=== PATIENT | male | born 1930 | race Caucasian/White ===

== ENCOUNTER → 2016-06-28 | Outpatient (REF) ==
[~2016-06-28] MED LIST: ARICEPT10 MG PO; ASPIRIN 32325 MG/TAB PO; ASPIRIN E.C. 8181 MG PO; ATIVAN0.5 MG PO; DOXAZOCIN PO; ELITE MAGNESIUM1 TAB PO; LOW DOSE ASPIRI81 MG PO; MULTIPLE VITAMI1 CAP PO; PAROXETINE10 MG PO; POTASSIUM20 MEQ PO; PRAVACHOL 20MG20 MG PO; PRAVACHOL10 MG PO; RISPERDAL 0.20.25 MG PO; VITAMIN B COMPL1 T16 PO; VITAMIN B-1000 MCG/T PO; VITAMIN C BUFF500 MG PO; VITAMIN C PUR1000 MG PO; VITAMIN D32000 I1 PO; VITAMIN D32000 IU PO; XANAX .25M0.25 MG/TA PO
== END ==
LOC: ZLAB.WCH 16:21
DX: Z01.89 Encounter for other specified special examinations (principal)
CPT/HCPCS: G0103

== ENCOUNTER → 2017-05-27 | Outpatient (REF) ==
[2017-05-27 11:46] LABS: PSA-TOTAL 4.71 ng/mL (0-4); THYROID STIMULATING HORMONE 2.07 uIU/mL (0.465-4.680)
== END ==
LOC: ZLAB.WCH 11:02
PROVIDERS: Internal Medicine
DX: Z01.89 Encounter for other specified special examinations (principal)
CPT/HCPCS: G0103

== ENCOUNTER → 2018-05-29 | Outpatient (REF) ==
[2018-05-29 20:25] LABS: PSA-TOTAL 5.06 ng/mL (0-4)
== END ==
LOC: ZLAB.WCH 18:28
PROVIDERS: Internal Medicine
DX: Z01.89 Encounter for other specified special examinations (principal)
CPT/HCPCS: G0103

== ENCOUNTER → 2018-07-09 | Outpatient (REF) | LOC: ZLAB.WCH 17:57 | DX: Z01.89 Encounter for other specified special examinations (principal) ==

== ENCOUNTER 2020-01-07 08:38 | Inpatient (IN) | payer MEDICARE, OTHER, MEDICAID ==
[2020-01-07] VITALS (10 sets, daily range): BP systolic 106–127; BP diastolic 49–65; PULSE 63–151; TEMP 98–100.7
[~2020-01-07] VITALS: Wt 76.3 kg
[2020-01-07] MEDS ORDERED: LEXAPRO 10MG10 MG PO (11:28)
--- NOTE | 2020-01-07 14:15 | NUR ---
PT ADMITTED TO ROOM 345 PER EMS FROM [facility]. CLEARED BY HOSPITALIST AND NOTIFIED DR. MIRANDA. CONSENT OBTAINED FROM BENJI PARRA' AND DPOA. PT TO SURGERY AT THIS TIME PER BED WITH CHANTEL SPORTS DIRECTOR.
--- NOTE | 2020-01-07 17:32 | NUR ---
PT TO ROOM 345 PER BED WITH REPORT FROM WILLIAM JUAREZ @[id number]. PT IS DROWSEY BUT AROUSES TO VERBAL, BASELINE DEMENTIA NOT ABLE TO ANSWER QUESTIONS. VSS, DRESSING TO RIGHT HIP CDI WITH BULKY DRESSING IN PLACE.
--- NOTE | 2020-01-07 18:22 | NUR ---
PT HAS REDDENED AREA AROUND MEATUS THAT IS RAW REDDISH FROM [place] THAT HAS BEEN TREATED.
--- NOTE | 2020-01-08 03:03 | NUR ---
Patient has rested well throughout the night. Post-op vitals were within normal limits. Patient doesn't talk much and will say 1-2 word answers to questions. Patient was drowsy, but able to be aroused to verbal stimuli. Medications crushed and put in chocolate pudding as this nurse was unsure how well he swallowed. Patient tolerated this well. PRN Tramadol given for pain d/t grimacing when repositioning. Bulky dressing noted to right hip. Danielson continues to drain clear, yellow urine. Escoriation noted to tip of penis d/t skin cancer removal prior to this hospital stay. Per report, patient has baseline dementia. Compliant with cares. Will continue to monitor patient.
[2020-01-08 03:39] VITALS: BP 116/55; PULSE 83; TEMP 100.4
[2020-01-08 06:40] LABS: CALCIUM 8.2 mg/dL (8.4-10.2); CREATININE, serum 1.32 (0.66-1.25); POTASSIUM 4.4 mmol/L (3.4-5.0)
[2020-01-08 06:42] LABS: HEMATOCRIT 30.7 % (42.0-52.0)
--- NOTE | 2020-01-08 06:45 | NUR ---
bedside shift repeort received from LARRY Sanabria, is awake but does not answer questions
[2020-01-08 07:35] VITALS: BP 115/50; PULSE 70; TEMP 99.1
--- NOTE | 2020-01-08 07:40 | NUR ---
appears to be dozing, awakened for assessment, henley appears to have been leaking and blankets and pillow between his legs are wet, incontinent care and am hygiene completed, f ull assessment completed, VOCATIONAL HORTICULTURE INSTRUCTOR at bedside and will assist him with having breakfast, c/o pain when rolled to side, repositioned to left side
--- NOTE | 2020-01-08 10:49 | NUR ---
remains sitting up in chair, takes sips of water when offered
--- NOTE | 2020-01-08 10:55 | NUR ---
The patient has dementia. LESIA contacted the patient's , Ruth (ph#[phone]), to discuss discharge plan. The patient resides at [facility] for long-term care. His PCP is Dr. Ervin Avilez and his advanced directives are in EMR. His DPOA-HC is his . The patient had a hip fracture. Ruth reports that she would prefer for the patient to go to [facility] for rehab upon discharge, due to her living in [place] and them allowing visitors at this time. Ruth reports that her and family would be able to provide transportation. Ruth states that if [facility] cannot accept the patient, then she would be agreeable with the patient returning back to [facility] for rehab. LESIA contacted and faxed a referral to Edwige at [facility]. Edwige confirms that they are allowing visitors at this time. LESIA contacted and updated Cali at [facility]. Cali reports that they would be able to accept the patient back and that they would not require another COVID test. LESIA faxed updates to [facility]. LESIA awaiting [facility] screen and will continue to follow.
--- NOTE | 2020-01-08 11:35 | NUR ---
First visit from the can cutter. No needs right now.
--- NOTE | 2020-01-08 11:45 | NUR ---
Dr Shore in to see patient, patient is sitting up in chair and assisting him with eating lunch,does well with marcel snow taking liquids with assistance
[2020-01-08 11:52] LABS: MEAN CELL VOLUME 94 fl (80.0-100.0); MEAN CORPUSCULAR HEMOGLOBIN 30 pg (27.0-31.0); MEAN CORPUSCULAR HGB CONC 32 g/dl (33.0-37.0); MEAN PLATELET VOLUME 11.2 fl (7.4-10.4); PLATELET COUNT 144 K/mm3 (130-400); RED BLOOD COUNT 3.32 M/mm3 (4.20-5.60); REDCELL DISTRIBUTION WIDTH-CV 13.1 % (11.5-14.5)
[2020-01-08 11:57] VITALS: BP 122/47; PULSE 104; TEMP 98.1
[2020-01-08 12:36] LABS: BAND 11 % (0-10); BASOPHIL 1 % (0-2); EOSINOPHIL 2 % (0-4); LYMPHOCYTE 10 % (20.0-51.0); NEUTROPHILS 66 % (42.0-75.2)
[2020-01-08 12:37] LABS: PLATELET ESTIMATE NORMAL (NORMAL)
--- NOTE | 2020-01-08 13:16 | NUR ---
assisted back to bed by physical therapy, henley catheter discontinued, occlusive dressing to right hip removed, incision with andreea and is CD&I, covered with aquacel dressing, tolerated well but does c/o pain when being moved, then rests quietly with eyes closed
--- NOTE | 2020-01-08 14:24 | NUR ---
in bed and appears to be sleeping, resp quiet and easy
--- NOTE | 2020-01-08 15:29 | NUR ---
LESIA received a phone call from the patient's granddaughter, Serena (ph#[phone]). Serena reports that the patient's and family actually preferred [facility], not [facility]. They are aware that he cannot have visitors at [facility], but still prefer it and that they have already been in contact with Joseline at [facility]. Serena states that the patient's is also starting to have some confusion. LESIA contacted and faxed a referral to Joseline at [facility]. Joseline reports that they would be glad to have the patient and would be able to accept him on Monday. Joseline reports that they would require a new COVID test. LESIA notified the patient's PA. LESIA attempted to contact and update Edwige at [facility]. LESIA left her a voicemail. SW to contact and update Cali at [facility] and will continue to follow.
[2020-01-08 17:14] VITALS: BP 113/55; PULSE 72; TEMP 98.1
--- NOTE | 2020-01-08 18:01 | NUR ---
assisted him with having some supper, not as ready to eat supper as he was lunch
--- NOTE | 2020-01-08 18:51 | NUR ---
bedside shift report given to LARRY Gilbert
--- NOTE | 2020-01-08 18:55 | NUR ---
Received report from Gabbie Doyle. Pt is currently sitting up in bed and his his call light wtihin reach and his bed is in lowest position.
[2020-01-08 20:00] VITALS: BP 112/48; PULSE 110; TEMP 100.4
[2020-01-09] VITALS (11 sets, daily range): BP systolic 87–149; BP diastolic 37–96; PULSE 73–167; TEMP 99–101.7
--- NOTE | 2020-01-09 01:00 | NUR ---
Pt is currently lying in bed sleeping. The aide reported to me that the pt has a temp of 100.2. I notified my charge nurse at this time because I was in with another pt and it would be a while before I was able to assess the pt. LARRY Patiño. gave him a [place] at that time.
--- NOTE | 2020-01-09 06:13 | NUR ---
With morning vitals the pt temperature did come down to 99.5. In report I was informed that the same thing happened with the pt the night before. Pt has his call light within reach. Pt did not take his night medications because after given pt a spoon of applesauce pt would not swallow. I did not give the pt the medication because of the risk of him aspirating on the medication. I also went back again and tried and thought it was best that the medication was not given.
[2020-01-09 07:01] LABS: MEAN CELL VOLUME 94 fl (80.0-100.0); MEAN CORPUSCULAR HGB CONC 33 g/dl (33.0-37.0); MEAN PLATELET VOLUME 10.7 fl (7.4-10.4); PLATELET COUNT 130 K/mm3 (130-400); REDCELL DISTRIBUTION WIDTH-CV 13.2 % (11.5-14.5)
[2020-01-09 07:05] LABS: HEMATOCRIT 24.3 % (42.0-52.0); HEMOGLOBIN 7.9 g/dl (13.5-18.0); MEAN CORPUSCULAR HEMOGLOBIN 30 pg (27.0-31.0)
[2020-01-09 07:11] LABS: CALCIUM 7.9 mg/dL (8.4-10.2); CREATININE, serum 1.55 (0.66-1.25); POTASSIUM 4.3 mmol/L (3.4-5.0)
--- NOTE | 2020-01-09 08:00 | NUR ---
Patient in bed. Arouses to voice and touch. SCDS to BLE. Aquacel to right hip is CDI. Will continue to monitor.
[2020-01-09 08:16] LABS: BAND 12 % (0-10); LYMPHOCYTE 8 % (20.0-51.0); NEUTROPHILS 72 % (42.0-75.2); PLATELET ESTIMATE NORMAL (NORMAL)
--- NOTE | 2020-01-09 10:41 | NUR ---
Tuyet CARRILLO in to see patient.
--- NOTE | 2020-01-09 11:10 | NUR ---
Patient up to recliner with physical therapy
--- NOTE | 2020-01-09 12:30 | NUR ---
Assisted patient with lunch. Ate approximately 50%
--- NOTE | 2020-01-09 15:38 | NUR ---
LESIA staffed with the patient's PA. The patient will not be able to d/c tomorrow. LESIA notified and emailed updates to Joseline at [facility]. LESIA contacted and updated the patient's and granddaughter, Serena. Serena reports that the plan is to transition the patient into long-term care at [facility]. She states that their family was not happy with the patient's care at [facility]. The patient's reports that the patient does have Medicaid. LESIA notified Financial Counselor, Darcy. Darcy confirms that he does have Medicaid and will add it to his account. LESIA to email an updated facesheet to Joseline at [facility]. LESIA faxed updates to [facility]. LESIA to continue to follow.
--- NOTE | 2020-01-09 16:10 | NUR ---
Notified Tuyet CARRILLO of increased temp.
--- NOTE | 2020-01-09 17:51 | NUR ---
Notified Dr. Shore; patients temp remains elevated.
--- NOTE | 2020-01-09 18:13 | NUR ---
Patient repositioned throughout the day. Assisted patient to eat meals. Napping on and off through the day. Temp remains elevated this afternoon. Will continue to monitor. WIll report off to night manager.
[2020-01-09 20:07] LABS: MUCOUS Present /lpf; PH 5 (5-8); SQUAMOUS EPITHELIAL 0-2 /hpf; URINE APPEARANCE Hazy; URINE BACTERIA Rare /hpf; URINE BILIRUBIN Negative (NEGATIVE); URINE BLOOD Negative (NEGATIVE); URINE COLOR Yellow; URINE GLUCOSE Negative (NEGATIVE); URINE KETONE Negative (NEGATIVE); URINE LEUKOCYTE ESTERASE Negative (NEGATIVE); URINE NITRATE Negative (NEGATIVE); URINE PROTEIN(semi-quant) 1+ (NEGATIVE); URINE UROBILINOGEN Negative (NEGATIVE)
[2020-01-10 01:14] LABS: COLLECTION METHOD CATHETER
--- NOTE | 2020-01-10 04:21 | NUR ---
During vitals rounds, OCCUPATIONAL HEALTH COORDINATOR notified this nurse of low blood pressure and high pulse. Manual blood pressure was taken and noted to be within normal limits. Telemetry ordered by Tammi Woods, along with an EKG. Straight cath completed and urine sample sent to lab. Patient tolerated this well. 100ml of urine out. Aquacel to right thigh removed per Tammi Woods, MARIUSZ. Edema noted to right thigh, lower back, and abdomen/groin. Redness and warmth present as well. Tammi aware. New dressing applied to site. Moderate amount of serosangiuous drainage noted to old dressing. Mehrdad intact. Patient noted to grimace with repositioning. PRN [place] given with evening medications. Meds crushed with pudding. Tolerated this well. Denies any further needs. Will continue to monitor.
[2020-01-10 05:24] VITALS: BP 116/49; PULSE 80; TEMP 99.5
[2020-01-10 07:11] LABS: BASO % 0.1 % (0.0-2.0); EOS # 0.3 (0.0-0.7); EOS % 3.2 % (0-4.0); GRAN # 6.6 (1.4-6.5); GRAN % 74.3 % (42.2-75.2); HEMATOCRIT 22.4 % (42.0-52.0); HEMOGLOBIN 7.1 g/dl (13.5-18.0); LYMPH # 0.8 (1.2-3.4); LYMPH % 9.3 % (20.0-51.0); MEAN CELL VOLUME 95 fl (80.0-100.0); MEAN CORPUSCULAR HEMOGLOBIN 30 pg (27.0-31.0); MEAN CORPUSCULAR HGB CONC 32 g/dl (33.0-37.0); MONO # 1.1 (0.1-0.6); MONO % 12.5 % (1.7-9.3); PLATELET COUNT 131 K/mm3 (130-400); RED BLOOD COUNT 2.37 M/mm3 (4.20-5.60); REDCELL DISTRIBUTION WIDTH-CV 13.3 % (11.5-14.5)
[2020-01-10 07:15] LABS: CALCIUM 7.8 mg/dL (8.4-10.2); CREATININE, serum 1.28 (0.66-1.25); POTASSIUM 4.1 mmol/L (3.4-5.0)
[2020-01-10 07:38] VITALS: BP 125/55; PULSE 74; TEMP 99.5
[2020-01-10 12:04] VITALS: BP 108/80; PULSE 63; TEMP 97.5
--- NOTE | 2020-01-10 13:58 | NUR ---
Quill Reamer emailed updates to Joseline at [facility]. Joseline inquired about discharge date and advised weekend admits are difficult for them as they do not have an admitting physician. LESIA collaborated with GERARDO Benz who advised discharge date would likely be Monday. LESIA provided this update to Joseline at . LESIA contacted patient's granddaughter, Serena to provide update. LESIA will continue to follow.
[2020-01-10 16:08] VITALS: BP 126/61; PULSE 70; TEMP 99.2
--- NOTE | 2020-01-10 18:30 | NUR ---
Patient has been very sleepy this morning. He did not eat much today. Was able to get him to drink more liquids today. He was having a hard time this am with eating and food intake. He was falling aleep during breakfast. Dressing to right hip is C/D/I. There continues to be reddsess to the area, but no drainage today. Patient sat up in the chair for a few hours with lunch. No other changes at this time. Dr Ireland seen patient afer lunch and stated he was not worried about the reddness at this time. Call light within reach. Bedalarm on.
[2020-01-10 20:14] VITALS: BP 127/53; PULSE 86; TEMP 98.4
--- NOTE | 2020-01-10 21:00 | NUR ---
Pt. laying in bed at this time. Pt. is confused. Pt. does respond to "yes/no" questions and will follow directions. INT to lt. wrist patent. Pt. grimices on occasion. Will give pain meds with evening meds. Pt. denies further needs, call light within reach.
[2020-01-11] VITALS (12 sets, daily range): BP systolic 101–133; BP diastolic 41–66; PULSE 60–72; TEMP 98.1–98.6
[2020-01-11 07:21] LABS: BASO % 0.3 % (0.0-2.0); EOS # 0.3 (0.0-0.7); EOS % 4.5 % (0-4.0); GRAN # 5.3 (1.4-6.5); GRAN % 70.2 % (42.2-75.2); LYMPH # 0.9 (1.2-3.4); LYMPH % 11.4 % (20.0-51.0); MEAN CELL VOLUME 95 fl (80.0-100.0); MEAN CORPUSCULAR HGB CONC 31 g/dl (33.0-37.0); MEAN PLATELET VOLUME 10.7 fl (7.4-10.4); MONO % 13.3 % (1.7-9.3); PLATELET COUNT 156 K/mm3 (130-400); RED BLOOD COUNT 2.36 M/mm3 (4.20-5.60); REDCELL DISTRIBUTION WIDTH-CV 13.4 % (11.5-14.5)
[2020-01-11 07:43] LABS: HEMATOCRIT 22.3 % (42.0-52.0); MEAN CORPUSCULAR HEMOGLOBIN 30 pg (27.0-31.0)
[2020-01-11 07:45] LABS: CREATININE, serum 1.18 (0.66-1.25); MAGNESIUM 2.3 mg/dL (1.6-2.3); POTASSIUM 3.9 mmol/L (3.4-5.0)
--- NOTE | 2020-01-11 09:33 | NUR ---
SW update: Patient can tranfer Monday. SW confirm with [facility] about admission.
--- NOTE | 2020-01-11 18:00 | NUR ---
Right hip aquacell saturated with serosanguinous drainage. Incision line CDI. New aquacell dressing applied. Moderated edema right hip. Denied pain. One unit of blood given. VSS. Assisted with meals.
[2020-01-12 00:16] VITALS: BP 114/58; PULSE 70; TEMP 97.4
[2020-01-12 03:29] VITALS: BP 126/68; PULSE 66; TEMP 98.4
[2020-01-12 07:10] VITALS: BP 119/71; PULSE 66; TEMP 97.7
[2020-01-12 07:52] LABS: BASO % 0.4 % (0.0-2.0); EOS # 0.4 (0.0-0.7); EOS % 5.4 % (0-4.0); GRAN # 4.4 (1.4-6.5); GRAN % 66.1 % (42.2-75.2); LYMPH # 0.8 (1.2-3.4); LYMPH % 11.7 % (20.0-51.0); MEAN CELL VOLUME 94 fl (80.0-100.0); MEAN CORPUSCULAR HGB CONC 32 g/dl (33.0-37.0); MEAN PLATELET VOLUME 10.9 fl (7.4-10.4); MONO # 1.1 (0.1-0.6); PLATELET COUNT 177 K/mm3 (130-400); RED BLOOD COUNT 2.85 M/mm3 (4.20-5.60); REDCELL DISTRIBUTION WIDTH-CV 13.3 % (11.5-14.5)
--- NOTE | 2020-01-12 08:00 | NUR ---
Drowsy. Denies pain. Right hip aquacell dressing with moderate amount drainage. Ice pack to hip. States wants to eat later.
[2020-01-12 08:02] LABS: CALCIUM 8.4 mg/dL (8.4-10.2); CREATININE, serum 1.09 (0.66-1.25)
[2020-01-12 08:04] LABS: HEMATOCRIT 26.7 % (42.0-52.0); HEMOGLOBIN 8.5 g/dl (13.5-18.0); MEAN CORPUSCULAR HEMOGLOBIN 30 pg (27.0-31.0)
--- NOTE | 2020-01-12 11:30 | NUR ---
Stood at side of bed with physical therapy and staff assist. Denied pain.
[2020-01-12 11:41] VITALS: BP 128/58; PULSE 65; TEMP 97.8
--- NOTE | 2020-01-12 14:00 | NUR ---
Complained of pain in left foot when repositioned. ALOK hose removed. Pressure ulcer noted on left heel. Skin intact. Heel protectors applied to heels.
[2020-01-12 15:28] VITALS: BP 119/57; PULSE 69; TEMP 97.8
--- NOTE | 2020-01-12 17:35 | NUR ---
Tylenol given for c/o hip pain with repositioning.
[2020-01-12 19:53] VITALS: BP 99/45; PULSE 70; TEMP 99.3
[2020-01-13 00:58] VITALS: BP 113/45; PULSE 59; TEMP 98.4
[2020-01-13 03:37] VITALS: BP 104/59; PULSE 65; TEMP 98.4
[2020-01-13 07:01] LABS: CALCIUM 8.1 mg/dL (8.4-10.2); CREATININE, serum 1.05 (0.66-1.25); POTASSIUM 3.9 mmol/L (3.4-5.0)
[2020-01-13 07:05] LABS: BASO % 0.4 % (0.0-2.0); EOS # 0.4 (0.0-0.7); EOS % 4.8 % (0-4.0); GRAN # 5.1 (1.4-6.5); GRAN % 67.8 % (42.2-75.2); LYMPH # 0.9 (1.2-3.4); LYMPH % 12.5 % (20.0-51.0); MEAN CELL VOLUME 93 fl (80.0-100.0); MEAN CORPUSCULAR HGB CONC 32 g/dl (33.0-37.0); MONO # 1.1 (0.1-0.6); MONO % 14.2 % (1.7-9.3); PLATELET COUNT 205 K/mm3 (130-400); RED BLOOD COUNT 2.68 M/mm3 (4.20-5.60); REDCELL DISTRIBUTION WIDTH-CV 13.1 % (11.5-14.5)
[2020-01-13 07:08] LABS: HEMATOCRIT 24.9 % (42.0-52.0); MEAN CORPUSCULAR HEMOGLOBIN 30 pg (27.0-31.0)
[2020-01-13 07:57] VITALS: BP 110/67; PULSE 72; TEMP 97.6
--- NOTE | 2020-01-13 09:00 | NUR ---
Patient resting in bed at this time. Patient sleeping but rouses easily. Patient is alert and responsive while awake but not oriented, advanced dementia per baseline. Patient ate breakfast well with assistance. Medications given with applesauce, patient tolerated well. Call light within reach, bed alarm on, patient visible from desk.
[2020-01-13 11:00] VITALS: BP 104/50; PULSE 70; TEMP 99.3
--- NOTE | 2020-01-13 12:30 | NUR ---
Report called to recieveing facility, discharge instructions, discharge appointments, and eating, swallowing precautions discussed. Questions asked and answered. informed of discharge. Patient given a bed bath, incontinent care provided. Patient helped into a wheelchair and taken to Patient entrance where he entered SNF transportaion.
--- NOTE | 2020-01-13 12:54 | NUR ---
The patient is to discharge today, 01/12 to [facility] for post acute rehab. The patient will be transported at noon. The team was in agreeance. Parts Clerk Plant Maintenance contacted the patient's , Ruth she was in agreeance. LESIA presented the IM form to Ruth. She verbalized understanding and gave LESIA permission to sign on her behalf. A copy was provided to the patient and the original was placed in the chart. LESIA faxed discharge orders. There are no additional needs at this time.
== END 2020-01-13 12:30 | DRG 469 ==
LOC: SURG 08:38
PROVIDERS: Orthopaedic Surgery; Physician Assistant; ADMIT Hospitalist
PROC: 0SRR0JA Replacement of Right Hip Joint, Femoral Surface with Synthetic Substitute, Uncemented, Open Approach (ICD-10-PCS; principal; 2020-01-07 15:00)
DX: S72.001A Fracture of unspecified part of neck of right femur, initial encounter for closed fracture (principal); J96.01 Acute respiratory failure with hypoxia; N17.9 Acute kidney failure, unspecified; E44.0 Moderate protein-calorie malnutrition; F03.90 Unspecified dementia, unspecified severity, without behavioral disturbance, psychotic disturbance, mood disturbance, and anxiety; I49.5 Sick sinus syndrome; R50.9 Fever, unspecified; F32.9 Major depressive disorder, single episode, unspecified; F41.9 Anxiety disorder, unspecified; D64.9 Anemia, unspecified; N18.9 Chronic kidney disease, unspecified; Z87.891 Personal history of nicotine dependence; Z95.0 Presence of cardiac pacemaker; W19.XXXA Unspecified fall, initial encounter
CPT/HCPCS: 99222-AI; 99231-AI; 99232-AI; 99239; A9284; C1713; C1776; J0690; J0696; J2405; J2704; J3010; J7030; J7042; J7050; J7120; P9016